=== PATIENT | female | born 1995 | race Caucasian/White ===

== ENCOUNTER 2020-01-31 09:53 | Outpatient (CLI) | payer OTHER ==
[2020-01-31 11:52] LABS: BASOPHILS # (AUTO) 0.1 10^3/uL (0.0-0.1); BASOPHILS % (AUTO) 0.6 %; EOSINOPHILS # (AUTO) 0.1 10^3/uL (0.0-0.7); EOSINOPHILS % (AUTO) 1.1 %; HGB - HEMOGLOBIN 13.7 g/dL (12.0-16.0); LYMPHOCYTES # (AUTO) 2.8 10^3/uL (1.5-3.5); LYMPHOCYTES % (AUTO) 35.1 %; MEAN CORPUSCULAR HEMOGLOBIN 29.5 pg (27.0-31.0); MEAN CORPUSCULAR HGB CONC 32.2 g/dL (32.0-36.0); MEAN CORPUSCULAR VOLUME 91.6 fL (81.0-99.0); MEAN PLATELET VOLUME 10.4 fL (7.9-10.8); MONOCYTES # (AUTO) 0.5 10^3/uL (0.0-1.0); MONOCYTES % (AUTO) 6.2 %; NEUTROPHILS # (AUTO) 4.5 10^3/uL (1.5-6.6); NEUTROPHILS % (AUTO) 56.6 %; PLT - PLATELET COUNT 275 10^3/uL (130-450); RED BLOOD COUNT 4.64 10^6/uL (4.20-5.40); RED CELL DISTRIBUTION WIDTH 12.1 % (12.0-15.0); WHITE BLOOD COUNT 7.9 x10^3/uL (4.8-10.8)
[2020-01-31 12:27] LABS: ALBUMIN 4.2 g/dL (3.2-5.5); ALBUMIN/GLOBULIN RATIO 1.2 (1.0-2.2); ALKALINE PHOSPHATASE 75 IU/L (42-121); ALT ALANINE AMINOTRANSFERASE 26 IU/L (10-60); AST ASPARTATE AMINOTRANSFERASE 18 IU/L (10-42); BILIRUBIN,TOTAL 0.6 mg/dL (0.2-1.0); BUN - BLOOD UREA NITROGEN 13 mg/dL (6-20); CALCIUM 9.2 mg/dL (8.5-10.3); CARBON DIOXIDE - CO2 27 mmol/L (21-32); CHLORIDE 103 mmol/L (101-111); CHOL/HDL RATIO 4.1 (<4.4); CHOLESTEROL 183 mg/dL; CREATININE 0.7 mg/dL (0.4-1.0); GLUCOSE 92 mg/dL (70-100); HDL CHOLESTEROL 45 mg/dL; LDL CHOLESTEROL,CALCULATED 113 mg/dL; LDL/HDL RATIO 2.5 (<4.4); SODIUM 137 mmol/L (135-145); TOTAL PROTEIN 7.6 g/dL (6.7-8.2); VLDL CHOLESTEROL 25 mg/dL
== END 2020-01-31 23:59 | disposition home or self-care (01) ==
LOC: LAB.WCP 09:53
PROVIDERS: ATTEND Physician Assistant Medical
DX: Z00.00 Encounter for general adult medical examination without abnormal findings (principal)
CPT/HCPCS: 36415; 80053; 80061; 83721; 84443; 85025

== ENCOUNTER 2021-04-08 17:03 | Emergency (ER) | payer MEDICAID, OTHER ==
[2021-04-08 20:21] VITALS: BP 138/65
--- NOTE | 2021-04-08 21:14 | XRAY Report ---
PROCEDURE: Chest 2 View X-Ray INDICATIONS: cough TECHNIQUE: 2 view(s) of the chest. COMPARISON: None. FINDINGS: Surgical changes and devices: None. Lungs and pleura: No pleural effusions or pneumothorax. Lungs are clear. Mediastinum: Mediastinal contours are normal. Heart size is normal. Bones and chest wall: No suspicious bony abnormalities. Soft tissues appear unremarkable. IMPRESSION: No evidence acute pulmonary process. Reviewed by: Erwin Hudson MD on 04/08/2021 9:13 PM PDT Approved by: Erwin Hudson MD on 04/08/2021 9:13 PM PDT Station ID: [id number]
--- NOTE | 2021-04-08 21:34 | ED Physician Documentation ---
History of Present Illness - Stated complaint Stated Complaint: BACK PX - Chief complaint Chief Complaint: Back Pain - Additonal information Additional information: 25-year-old female presents emergency department for evaluation of midthoracic back pain that began about 1 month ago. She did deliver her infant 2 months ago. No complications. 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 She denies a pleuritic component to this pain but does state that sometimes it radiates to her anterior chest. No falls or trauma. No history of DVT or cancer. No unilateral leg swelling. The pain occurs when she lays flat for too long or after she has been breast- feeding. It is reproducible on exam. Review of Systems Constitutional: denies: Fever, Chills Eyes: reports: Reviewed and negative Ears: reports: Reviewed and negative Nose: reports: Reviewed and negative Throat: reports: Reviewed and negative Cardiac: reports: Reviewed and negative Respiratory: reports: Reviewed and negative Musculoskeletal: reports: Back pain PD PAST MEDICAL HISTORY - Present Medications Home Medications: Ambulatory Orders Medication Instructions Recorded Confirmed Cholecalciferol [Vitamin D3] 5,000 unit ORAL DAILY 04/08/21 04/08/21 Cyclobenzaprine [Flexeril] 10 mg PO DAILY 6 Days #12 tablet 04/08/21 Pnv No.95/Ferrous Fum/Folic AC 1 each PO DAILY 04/08/21 04/08/21 [ Tablet] - Allergies Allergies/Adverse Reactions: Allergies Allergy/AdvReac Type Severity Reaction Status Date / Time amoxicillin AdvReac Rash Verified 04/08/21 17:26 PD ED PE NORMAL - General General: Alert and oriented X 3, No acute distress - Neck Neck: Supple, no meningeal sign - Cardiac Cardiac: RRR, No murmur - Respiratory Respiratory: Clear bilaterally - Abdomen Abdomen: Normal bowel sounds, Soft, Non tender, Non distended - Back Back: No CVA TTP, Other (Reproducible mid thoracic back pain with palpation. No crepitus step-off or erythema. Full range of motion of the thoracic spine.) - Derm Derm: Warm and dry - Extremities Extremities: No deformity Results - Vitals Vitals: Vital Signs - 24 hr 04/08/21 04/08/21 17:27 20:20 Temperature 36.2 C L 36.3 C L Heart Rate 96 89 Respiratory 16 16 Rate Blood Pressure 118/72 138/65 H O2 Saturation 100 97 Oxygen O2 Source Room air - Rads (name of study) CXR Radiology: Final report received (No acute process) PD MEDICAL DECISION MAKING - ED course Complexity details: reviewed results, d/w patient ED course: 25-year-old female presents emergency department for evaluation of midthoracic back pain that occurs mostly after breast-feeding her infant or when she lays flat for too long. The pain is reproducible on palpation. 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 She does have Nexplanon implant in place. We discussed the possibility that this Could be a subtle indication of a pulmonary embolus. I offered D- dimer testing with the understanding that if elevated she would require CT pulmonary angio. However she declined that at this time. She felt that she would get improvement by continuing ibuprofen and Tylenol and request a muscle relaxer. Flexeril will be prescribed. Emergent return precautions were discussed for worsening symptoms. 2 view chest x-ray did not show any fractures findings of pneumonia. Departure - Departure Disposition: 01 Home, Self Care Clinical Impression: Thoracic back pain Qualifiers: Chronicity: acute Back pain laterality: midline Qualified Code(s): M54.6 - Pain in thoracic spine Condition: Stable Record reviewed to determine appropriate education?: Yes Prescriptions: Cyclobenzaprine [Flexeril] 10 mg PO DAILY 6 Days #12 tablet Comments: Annette you were seen in the emergency department today for mid thoracic back pain that is been present for about a month. We discussed that there was a very small possibility that this could be pulmonary embolus given your history of recent delivery as well as Ehler Danlos syndrome. However you elected to attempt a trial of a muscle relaxer to see if it provided relief. I have prescribed a limited amount of Flexeril. This can be taken once or twice daily as needed. It does cross over into the breastmilk so use it cautiously but it is generally considered to safe. Please follow-up with your primary care provider. If your symptoms are not improving, you develop shortness of breath, have leg swelling or severe chest pain then please return immediately to the ER for a second evaluation.
== END 2021-04-08 21:53 | disposition home or self-care (01) ==
LOC: ED 17:03
DX: M54.6 Pain in thoracic spine (principal); Q79.60 Ehlers-Danlos syndrome, unspecified
CPT/HCPCS: 99283; 99284

== ENCOUNTER 2021-04-13 10:34 | Emergency (ER) | payer MEDICAID ==
[2021-04-13 12:33] LABS: BASOPHILS % (AUTO) 0.3 %; EOSINOPHILS % (AUTO) 0.3 %; HCT - HEMATOCRIT 38.7 % (37.0-47.0); LYMPHOCYTES # (AUTO) 1.6 10^3/uL (1.5-3.5); LYMPHOCYTES % (AUTO) 25.8 %; MEAN CORPUSCULAR HEMOGLOBIN 26.6 pg (27.0-31.0); MEAN CORPUSCULAR VOLUME 85.8 fL (81.0-99.0); MEAN PLATELET VOLUME 9.8 fL (7.9-10.8); MONOCYTES # (AUTO) 0.4 10^3/uL (0.0-1.0); MONOCYTES % (AUTO) 6.3 %; NEUTROPHILS # (AUTO) 4.2 10^3/uL (1.5-6.6); PLT - PLATELET COUNT 280 10^3/uL (130-450); RED BLOOD COUNT 4.51 10^6/uL (4.20-5.40); RED CELL DISTRIBUTION WIDTH 14.6 % (12.0-15.0); WHITE BLOOD COUNT 6.2 x10^3/uL (4.8-10.8)
[2021-04-13 12:34] LABS: GLUCOSE, URINE (UA) NEGATIVE (NEGATIVE); KETONES,URINE (UA) NEGATIVE (NEGATIVE); LEUKOCYTE ESTERASE, URINE TRACE (NEGATIVE); NITRITE,URINE NEGATIVE (NEGATIVE); OCCULT BLOOD,URINE NEGATIVE (NEGATIVE); PH,URINE 8.5 PH (5.0-7.5); PROTEIN,URINE NEGATIVE (NEGATIVE); UROBILINOGEN,URINE 1 (NORMAL) E.U./dL (NORMAL)
[2021-04-13 12:37] LABS: CLARITY,URINE CLEAR (CLEAR)
[2021-04-13 12:44] LABS: BILIRUBIN,URINE NEGATIVE (NEGATIVE); ICTOTEST,URINE NEGATIVE
[2021-04-13 12:56] LABS: BACTERIA,URINE Few /HPF (None Seen); RBC,URINE 0-5 /HPF (0-5); SQUAMOUS EPITHELIAL CELL,UR MOD Squamous (<= Few)
[2021-04-13 12:59] LABS: ALBUMIN 4.4 g/dL (3.2-5.5); ALBUMIN/GLOBULIN RATIO 1.3 (1.0-2.2); BILIRUBIN,TOTAL 1.8 mg/dL (0.2-1.0); CALCIUM 9.3 mg/dL (8.5-10.3); CREATININE 0.6 mg/dL (0.4-1.0); POTASSIUM 4.2 mmol/L (3.5-5.0); TOTAL PROTEIN 7.8 g/dL (6.7-8.2)
[2021-04-13] MEDS ORDERED: IOPAMIDOL-300 100 ML VIAL ONE (13:08)
[2021-04-13] MEDS ORDERED: MORPHINE 2 MG/ML CARPUJECT IVP STA (13:33)
--- NOTE | 2021-04-13 13:34 | ED Physician Documentation ---
PD HPI BACK PAIN - Stated complaint Stated Complaint: BACK PAIN - Chief complaint Chief Complaint: Back Pain - History obtained from History obtained from: Patient - History of Present Illness Timing - duration: Months (3) Timing - details: Gradual onset Pain level max: 6 Pain level now: 5 Location: Mid, Left Quality: Pain, Similar to prior episodes Associated symptoms: No: Fever, Weakness, Numbness, Incontinent of urine, Unable to urinate, Hematuria Improves with: Rest Worsened by: Movement Contributing factors: Lifting - Additional information Additional information: Patient is a 25-year-old female who presents to the emergency department with left midthoracic back pain. Ongoing for the past 2 to 3 months since giving . She states she has a history of Marie-Danlos syndrome. She states that the pain seems to be worse with taking a deep breath or moving. Also worse with lifting her child. Had been trialed on muscle relaxants and pain medication without relief. No chest pain. No shortness of breath. Review of Systems Constitutional: denies: Fever, Chills Respiratory: denies: Cough GI: denies: Vomiting, Constipation, Diarrhea : denies: Dysuria, Frequency, Hesitancy, Incontinent Musculoskeletal: denies: Neck pain Neurologic: denies: Focal weakness, Numbness PD PAST MEDICAL HISTORY - Past Medical History Past Medical History: Yes Other Past Medical History: marie danlos - Past Surgical History Past Surgical History: No - Present Medications Home Medications: Ambulatory Orders Medication Instructions Recorded Confirmed Cholecalciferol [Vitamin D3] 5,000 unit ORAL DAILY 04/08/21 04/13/21 Cyclobenzaprine [Flexeril] 10 mg PO DAILY 6 Days #12 tablet 04/08/21 04/13/21 Pnv No.95/Ferrous Fum/Folic AC 1 each PO DAILY 04/08/21 04/13/21 [ Tablet] HYDROcod/ACETAM 5/325 [[place] 5/325] 1 - 2 ea PO Q6H PRN #14 tablet 04/13/21 Meloxicam [Mobic] 15 mg PO DAILY PRN #20 tablet 04/13/21 methocarbamoL [Robaxin] 500 mg PO Q6H PRN #20 tablet 04/13/21 - Allergies Allergies/Adverse Reactions: Allergies Allergy/AdvReac Type Severity Reaction Status Date / Time amoxicillin AdvReac Rash Verified 04/13/21 10:57 - Living Situation Living Arrangement: reports: At home - Social History Does the pt smoke?: No Smoking Status: Never smoker Does the pt drink ETOH?: No Does the pt have substance abuse?: No - Immunizations Immunizations are current?: No - POLST Patient has POLST: No PD ED PE NORMAL - Vitals Vital signs reviewed: Yes - General General: Alert and oriented X 3, No acute distress, Well developed/nourished - HEENT HEENT: PERRL, Moist mucous membranes - Neck Neck: Supple, no meningeal sign - Cardiac Cardiac: RRR, No murmur, Strong equal pulses - Respiratory Respiratory: No respiratory distress, Clear bilaterally - Abdomen Abdomen: Soft, Non tender, Non distended - Back Back: No CVA TTP, No spinal TTP, Other (Mild tenderness to palpation mid thoracic, left side. No step-off or deformity. No skin changes.) - Derm Derm: Warm and dry - Extremities Extremities: No edema, No calf tenderness / cord - Neuro Neuro: Alert and oriented X 3, No motor deficit, No sensory deficit, Normal speech, Other (Normal bilateral lower extremity patellar and ankle jerk reflexes. Normal great toe extension bilaterally. no saddle anesthesia) Eye Opening: Spontaneous Motor: Obeys Commands Verbal: Oriented GCS Score: 15 - Psych Psych: Normal mood, Normal affect Results - Vitals Vitals: Vital Signs - 24 hr 04/13/21 04/13/21 10:57 15:39 Temperature 36.2 C L 36.5 C Heart Rate 67 66 Respiratory 18 16 Rate Blood Pressure 109/57 L 112/60 O2 Saturation 96 98 Oxygen O2 Source Room air - Labs Labs: Laboratory Tests 04/13/21 04/13/21 04/13/21 11:14 12:27 12:27 WBC 6.2 RBC 4.51 Hgb 12.0 Hct 38.7 MCV 85.8 MCH 26.6 L MCHC 31.0 L RDW 14.6 Plt Count 280 MPV 9.8 Neut # (Auto) 4.2 Lymph # (Auto) 1.6 [place] # (Auto) 0.4 Eos # (Auto) 0.0 Baso # (Auto) 0.0 Absolute Nucleated RBC 0.00 Nucleated RBC % 0.0 Sodium 141 Potassium 4.2 Chloride 103 Carbon Dioxide 27 Anion Gap 11.0 BUN 14 Creatinine 0.6 Estimated GFR (MDRD) 123 Glucose 96 Calcium 9.3 Total Bilirubin 1.8 H AST 726 H ALT 669 H Alkaline Phosphatase 225 H Total Protein 7.8 Albumin 4.4 Globulin 3.4 Albumin/Globulin Ratio 1.3 Lipase 52 H Urine Color DARK YELLOW Urine Clarity CLEAR Urine pH 8.5 H Ur Specific [place] 1.015 Urine Protein NEGATIVE Urine Glucose (UA) NEGATIVE Urine Ketones NEGATIVE Urine Occult Blood NEGATIVE Urine Nitrite NEGATIVE Urine Bilirubin NEGATIVE Urine Urobilinogen 1 (NORMAL) Ur Leukocyte Esterase TRACE H Urine RBC 0-5 Urine WBC 11-25 H Ur Squamous Epith Cells MOD Squamous H Urine Bacteria Few Ur Microscopic Review INDICATED Urine Culture Comments NOT INDICATED - Rads (name of study) CT angio chest Radiology: Final report received, EMP read contemporaneously, See rad report (no acute abnormality) PD MEDICAL DECISION MAKING - ED course Complexity details: reviewed results, re-evaluated patient, considered differential (No cauda equina, no spinal epidural abscess, no fracture, no aortic dissection or evidence of aneursym rupture), d/w patient ED course: No acute findings on CT scan. No evidence of aortic dissection, pulmonary embolus. Likely that this is muscular pain from picking up her new repeatedly. We will prescribe pain medication, muscle relaxants and have her follow-up closely with her doctor for further care. I am prescribing a short course of short-acting opioid pain medication for this patient. I have reviewed the patients ORE GRADER and no concerning findings were noted. I have discussed that the opioids are for short term therapy only, and will not be refilled from the ED. patient counseled regarding signs and symptoms for which I believe and urgent re-evaluation would be necessary. Patient with good understanding of and agreement to plan and is comfortable going home at this time This document was made in part using voice recognition software. While efforts are made to proofread this document, sound alike and grammatical errors may occur. Departure - Departure Disposition: 01 Home, Self Care Clinical Impression: Thoracic back pain Qualifiers: Chronicity: acute Back pain laterality: left Qualified Code(s): M54.6 - Pain in thoracic spine Condition: Good Instructions: ED Neck Back Pain General Follow-Up: your,doctor in 1 week [Other] Prescriptions: Meloxicam [Mobic] 15 mg PO DAILY PRN #20 tablet PRN Reason: pain HYDROcod/ACETAM 5/325 [[place] 5/325] 1 - 2 ea PO Q6H PRN #14 tablet PRN Reason: Pain methocarbamoL [Robaxin] 500 mg PO Q6H PRN #20 tablet PRN Reason: muscle spasm Comments: Please follow-up with your doctor for further care. Your prescriptions were sent to [facility] in [place]. I am prescribing a short course of narcotic pain medication for you. These are potentially dangerous and addictive medications that should be used carefully. These medications may constipate you. Take an qqje-yet-ohltrvz stool softener (docusate) twice daily with plenty of water while taking these medications. If you go 24 hours without a bowel movement, take ryqr-uyq-ddkofrw miralax, per package instructions. Do not drink or drive while taking these medications. If you received narcotic or sedating medications while in the emergency department, do not drive for 24 hours. Store this medication in a safe, secure place and out of reach of children. It is a violation of federal law to give or sell this medication to another person or to use in a manner other than prescribed. The ED will not refill narcotic prescriptions, including prescriptions lost or stolen. To dispose of unwanted medications: 1. [facility] at [address] in [place] has a medication drop box. They accept prescription medications (in pill form) Tuesday through Tuesday 9:00 a.m. to 5:00 p.m. 2. The [facility] [employer] [facility] accepts prescription medications (in pill form only) for disposal year round. Call for more information. 3. Contact the [facility] for the next [facility] sponsored prescription drug collection event. , [phone], or [phone]; Discharge Date/Time: 04/13/21 15:43
[2021-04-13] MEDS ORDERED: IOPAMIDOL-300 100 ML VIAL IVP ONE (14:01)
--- NOTE | 2021-04-13 15:02 | CT Report ---
PROCEDURE: ANGIO CHEST W/WO INDICATIONS: mid thoracic back pain CONTRAST: IV CONTRAST: Isovue 300 ml: 80 PO CONTRAST: *NO PO CONTRAST TECHNIQUE: After the administration of intravenous contrast, images were acquired from the pulmonary apices to t he posterior costophrenic angles. 3-dimensional maximum intensity projection (MIP) coronal and sagit cristino reformats were then acquired through the thorax. For radiation dose reduction, the following was used: automated exposure control, adjustment of mA and/or kV according to patient size. COMPARISON: None. FINDINGS: Image quality: Excellent. Pulmonary arteries: Pulmonary arteries are normal in size, and demonstrate no intraluminal filling d efects to suggest central pulmonary embolism. Lungs and pleura: Mild bibasilar atelectasis. Otherwise, lungs are clear. No focal consolidation. No pleural effusions or pneumothorax. Central and peripheral airways are patent. Mediastinum: Heart size is normal, without pericardial effusion. No mediastinal or hilar adenopathy . Thoracic aorta is normal in caliber and enhancement. Esophagus is normal in caliber, without hiat al hernia. Bones and chest wall: No suspicious bony lesions. Ribs and thoracic spine appear intact throughout. No axillary or supraclavicular adenopathy. The thyroid is normal in size and there are no incident al findings. Acute compression fractures of the thoracic spine. Abdomen: Visualized upper abdominal solid organs appear normal in the early arterial phase of enhanc ement. IMPRESSION: No acute pulmonary emboli. No acute cardiopulmonary abnormalities. No acute compression fractures of the imaged spine. CLINICAL RECOMMENDATION STATEMENTS: In patients <35 years with an ITN detected on CT, MRI, or extrathyroidal ultrasound, the Committee re commends further evaluation with dedicated thyroid ultrasound if the nodule is ?1 cm and has no suspi cious imaging features, and if the patient has normal life expectancy. In patients ?35 years with an ITN detected on CT, MRI, or extrathyroidal ultrasound, the Committee re commends further evaluation with dedicated thyroid ultrasound if the nodule is ?1.5 cm and has no annita picious imaging features, and if the patient has normal life expectancy. (ACR, 2014) Reviewed by: Fabian Garrett MD on 04/13/2021 3:01 PM PDT Approved by: Fabian Garrett MD on 04/13/2021 3:01 PM PDT Station ID: [id number]
[2021-04-13 15:40] VITALS: BP 112/60
== END 2021-04-13 15:43 | disposition home or self-care (01) ==
LOC: ED 10:34
DX: M54.6 Pain in thoracic spine (principal); Q79.60 Ehlers-Danlos syndrome, unspecified
CPT/HCPCS: 36415; 71275; 80053; 81001; 83690; 85025; 96374; 99284; Q9967; 81003; 87086

== ENCOUNTER 2023-09-30 15:03 | Outpatient (CLI) | payer MEDICAID ==
--- NOTE | 2023-09-30 15:59 | Sleep Patient Instructions ---
Sleep Center Visit Summary - Patient Visit Information Reason for Visit: Initial consult for evaluation of sleep disordered breathing and other sleep issues. - Patient Instructions Instructions Attached: Sleep Study, Sleep Study Home Monitor Additional Instructions: You will be completing a sleep study, either an in-lab polysomnography (PSG) or home sleep study (HST). You will follow-up in the sleep care office after the sleep study is completed to hear the results and talk about therapy, if needed. You will be called by our office staff to schedule this appointment, but you may contact us with any questions. - Clinic Information Contact: [facility] [address] [place] [id number] [email or web address] T: [phone]
[2023-09-30 16:04] VITALS: BP 124/77; O2SAT 98
--- NOTE | 2023-09-30 16:04 | SLEEP CARE CONSULTATION ---
Information from patient questionnaire entered by Nimco Vega. I have reviewed and concur with the information entered by Nimco Vega. This document represents the service I personally performed and the decisions made by me, Yelena Rockwell ARNP. History of Present Illness Service Date and Time: 09/30/2023 1503 Reason for Visit: New patient Chief Complaint: reports: Insomnia (1-2YRS), Snoring, Excessive daytime sleepiness, Observed pauses in breathing ( LONG I CAN REMEMBER ), Fatigue, Frequent awakenings at night Usual bedtime: 8PM Time it takes to fall asleep: 1.5HRS Snores at night: Yes Observed to quit breathing while asleep: Yes Number of times waking at night: 3-4 Reasons for waking at night: reports: Pain, Bathroom, Other (UNKNOWN). denies: Choking, Snoring, Gasping for air Toss, Turn, or Twitch while sleeping: Yes Recalls having dreams: Yes Usually gets out of bed at: 415AM; hour more on weekends Feels refreshed in the morning: No Morning headache: Yes (4 times a week; last 30 mins, resolves with shower) Sleepy or fatigued during the day: Yes (more in afternoon) Ever fallen asleep while driving: No Takes day naps: Yes (daily during her break from work for about an hour; split schedule) Dreams during day naps: No Prior sleep studies: No Additional HPI information: I had the pleasure of seeing IRA PHAM today regarding the possibility of her having a sleep disorder. Her current complaints are excessive daytime sleepiness, fatigue, frequent night awakenings, insomnia, observed pauses in breathing and snoring. She was seeing her doctor about anxiety and depression issues. He mother told her she snores and stops breathing like her dad who has sleep apnea when sleeping on the couch at home. Her sister tells her she snores like a freClusterize train. Her sister has also heard her stop breathing and then gasp and resume sleeping/snoring. She does not normally wake up feeling refreshed and gets tired during the days, especially in afternoon. She will take a daily nap in the afternoon when working. She works a split shift and comes home in between times and sleeps for about an hour. She feels that she wakes up frequently. She lays down to sleep about 8 PM after putting her 2.5 year old son to bed. But, she lays there until about 9:30 PM before falling asleep. She gets up on average about 0415 for work, by 7 AM on weekends. - Parasomnia Symptoms Ever been unable to move upon waking from sleep: No Walks in sleep: No Talks in sleep: Yes Ever acted out dreams in sleep: No Ever felt weak in the knees when startled or emotional: Yes (has not fallen to the ground) Bothered by creepy, crawly, restless sensations in legs: No Problems with memory or concentration: Yes (more memory; does have ADHD) Subjective Initial [place] Sleepiness Scale score: 13 (09/30/23) Past Medical History Past Medical History: reports: Claustrophobia, Anxiety, Asthma, Depression, Attention deficit, Other (history of Maire Danlos) Social History The patient's occupation is a [employer]. Patient is Single and lives in . Have you smoked in the past 12 months: No Alcohol use: No Caffeine use: Yes Caffeine amount and frequency: .5 BOTTLE 2-3 TIMES Family History Family history of sleep disordered breathing: Yes Family Hx Sleep Apnea: Father: Snoring (SON), Sleep apnea - Treated, Sibling: Snoring, Other: Snoring Allergies and Home Medications Known drug allergies: Yes (AMOXICILLIN) Drug allergies reviewed: Yes Home medication list reviewed: Yes Allergy and home medication list: Allergies amoxicillin Adverse Reaction (Verified 09/29/23 12:18) Rash Home Medications Medication Instructions Recorded Confirmed Last Taken Type Albuterol Sulf [Ventolin Hfa See Rx Instructions .ROUTE .COMPLEX 09/30/23 09/30/23 Unknown History Inhaler] Escitalopram Oxalate [Lexapro] See Rx Instructions .ROUTE .COMPLEX 09/30/23 09/30/23 Unknown History Review of Systems Weight gain over past 5 years: 90 Cardiovascular: denies: high blood pressure Respiratory: reports: shortness of breath Gastrointestinal: reports: heartburn, vomitting, diarrhea Neurological: reports: headaches Psychiatric: reports: Attention Deficit Hyperactivity, anxiety, depression, claustrophobia Ear/Nose/Throat: reports: tonsillectomy, wisdom teeth removed Endocrine: reports: sluggishness Physical Exam Vital signs obtained and entered by: NIMCO Still MA Blood Pressure: 124/77 (LEFT ARM) Cuff size: regular Heart Rate: 89 O2 Saturation: 98 Height: 5 ft 4 in Weight: 263 lb 3.2 oz Body Mass Index: 45.1 BMI Classification: Morbidly Obese Neck circumference: 18.5 Mouth and throat: narrow oropharynx Soft palate: long Hard palate: normal Uvula: normal Uvula visualization: 25% Mallampati Class III Tongue: enlarged in size with teeth downing on lateral edges Tonsils: absent bilaterally Neck: normal w/o lymphadenopathy or thyromegaly Heart: regular rate and rhythm Lungs: clear bilaterally Impression and Plan 1. Suspected Obstructive Sleep Apnea-Hypopnea Syndrome, as suggested by a history of loud and irregular snoring, observed cessation of breath while asleep, gasping or choking in sleep, morning headache, frequent awakening during the night, unrefreshed sleep, cognitive impairment, and excessive daytime sleepiness. Narrow oropharynx and obesity are common predisposing factors for obstructive sleep apnea-hypopnea syndrome. I recommend proceeding to polysomnography to confirm the diagnosis and to assess severity. If the patient has significant sleep disordered breathing, a manual CPAP titration study will also be performed to find the optimal treatment pressure. I informed the patient of what the sleep studies involve and after some discussion, obtained agreement to proceed. The pathophysiology of obstructive sleep apnea-hypopnea syndrome was discussed with the patient and health risks of cardiovascular and cerebrovascular disease if not treated. Risks of drowsy driving discussed in detail and patient advised to avoid long distance driving and to cotton puller at the first sign of drowsiness. Patient agreed to plan. * Schedule polysomnography +- manual CPAP titration study and return in 1-2 weeks after the study to discuss result and initiate therapy. * Avoid long distance driving or driving when feeling sleepy. * Avoid alcohol, sedative and muscle relaxant around bedtime. * Attempt to lose weight. * Review instructions provided by trained office staff on how to prepare for the sleep study. * Return for follow-up after sleep study completed. Counseling Topics: Weight loss health impact Follow up with Sleep Care in: other (after sleep study) Plan: PSG/HST Visit Type: In Office Time Spent with Patient (minutes): 30 Provider Statement: I spent 100% of the Face to Face Visit with the patient with greater than 50% spent counseling the patient and coordination of care.
== END 2023-09-30 15:04 | disposition home or self-care (01) ==
LOC: SC 15:03
PROVIDERS: ATTEND Nurse Practitioner Family
DX: G47.10 Hypersomnia, unspecified (principal); R53.83 Other fatigue; G47.8 Other sleep disorders; R06.83 Snoring; R06.81 Apnea, not elsewhere classified; R51.9 Headache, unspecified; R41.89 Other symptoms and signs involving cognitive functions and awareness; F32.A Depression, unspecified; E66.01 Morbid (severe) obesity due to excess calories; Z68.42 Body mass index [BMI] 45.0-49.9, adult
CPT/HCPCS: 99203; 99212

== ENCOUNTER 2023-11-17 08:22 | Outpatient (CLI) | payer MEDICAID | END 2023-11-17 08:23 | disposition home or self-care (01) | LOC: SC 08:22 | PROVIDERS: ATTEND Nurse Practitioner Family | DX: G47.33 Obstructive sleep apnea (adult) (pediatric) (principal); R09.02 Hypoxemia | CPT/HCPCS: 95806 ==

== ENCOUNTER 2023-12-21 15:52 | Outpatient (CLI) | payer MEDICAID ==
--- NOTE | 2023-12-21 16:17 | Sleep Patient Instructions ---
Sleep Center Visit Summary - Patient Visit Information Reason for Visit: Sleep study follow-up - Patient Instructions Instructions Attached: CPAP Additional Instructions: You are being started on CPAP therapy with pressure setting at 4-15 cmH2O. You will need to call the sleep care office to set up your follow up once you have your CPAP machine to check compliance and response to therapy at that time. You may call the office with any concerns about pressure feeling too low or too much for adjustment, if needed. You should contact DME supplier for any questions or concerns about mask or equipment. Please call office to schedule a follow up appointment in the sleep care office one month after obtaining new device. - Clinic Information Contact: [facility] [address] [place] [address] [email or web address] T: [phone]
--- NOTE | 2023-12-21 16:18 | SLEEP CARE CONSULTATION ---
Information from patient questionnaire entered by Nimco Vega. I have reviewed and concur with the information entered by Nimco Vega. This document represents the service I personally performed and the decisions made by , Yelena Rockwell ARNP. History of Present Illness Service Date and Time: 12/21/2023 1600 Initial [place] Sleepiness Scale score: 13 (09/30/23) Current [place] Sleepiness Scale score: 12 (12/21/23) Additional HPI information: [facility] returns for follow up and results of the recently performed home sleep study. The sleep study showed moderate obstructive sleep apnea with an average AHI of 21.9 and elfego oxygen saturation of 68%. I explained the pathophysiology behind obstructive sleep apnea. We then spent quite a bit of time discussing different treatment options. For mild obstructive sleep apnea, surgery and oral appliance are alternatives to nasal CPAP therapy but in moderate or severe cases, nasal CPAP is the most effective and reliable treatment. I reviewed the impact of weight changes on sleep apnea and strongly recommended losing weight. After some discussion, the patient opted to go with the nasal CPAP therapy. Nasal autoCPAP set at 4-15 cmH20 will be ordered with rationale explained. A manual titration study will be ordered if unable to find optimal pressure with office adjustments. I explained how CPAP machine works and what to expect when using the machine. Using CPAP every night in order to get used to it was emphasized. Patient advised to put CPAP mask on before getting into bed so as not to fall asleep without CPAP. To assist acclimation to CPAP use, it could also be used for a short time during day while reading or watching TV. The patient was instructed to call the CPAP supplier to discuss any mechanical problem that may occur. If the mask given is uncomfortable or is difficult to keep on through the night even with adjustment, contact the CPAP supplier as many will replace with another mask style if notified before 30 days. If snoring or perceives is not getting enough air or too much air from the machine, notify this office. Patient does not drink alcohol. Patient was cautioned about risks of drowsy driving until sleepiness symptoms resolve. Patient denies drowsy driving. Sleep Study - Results Type of Sleep Study: Home sleep study (COMPLETED 11/17/23) Prior sleep studies: No Polysomnography/Home Sleep Study results: Physician Impression: The quality of the study is good. The length of the study is adequate (> 240 minutes). Please also see the tabulated and graphic data. 1. Obstructive Sleep Apnea-Hypopnea (ICD-10 G47.33), moderate, with an AHI of 21.9/hr and elfego SaO2 of 68%. During the study, the patient had 108 apneas (108 obstructive, 0 central, 0 mixed) and 107 hypopneas. The longest episode lasted 58.5 seconds. The respiratory events occurred more frequently during supine sleep (supine AHI was 23.1 and non-supine, 10.97). 2. Hypoxemia (ICD-10 R09.02), moderate, with the lowest oxygen saturation of 68 % and 40.6 minutes with SaO2 under 90%. Baseline oxygen saturation was normal (Average oxygen sa turation was 93%). Allergies and Home Medications Known drug allergies: Yes (as listed) Drug allergies reviewed: Yes Home medication list reviewed: Yes (escitalopram; Buspirone) Allergy and home medication list: Allergies amoxicillin Adverse Reaction (Verified 12/19/23 10:30) Rash Review of Systems Review of systems same as previous: Yes (NO CHANGE) Physical Exam Vital signs obtained and entered by: NIMCO Still MA Blood Pressure: 120/65 (RIGHT ARM) Cuff size: long Heart Rate: 80 O2 Saturation: 97 Height: 5 ft 4 in Weight: 261 lb 3.2 oz Body Mass Index: 44.8 BMI Classification: Morbidly Obese Impression and Plan 1. Obstructive Sleep Apnea-Hypopnea Syndrome, moderate, with lowest oxygen saturation of 68%. Obviously this is the cause of the patients symptoms of unrefreshed sleep, and excessive daytime sleepiness. Positive pressure therapy could benefit anxiety, depression and attention deficit. As mentioned above, the patient will be started on nasal autoCPAP therapy with pressure set at 4-15 cmH2O. A manual titration study will be completed if unable to find optimal treatment pressure with office adjustments. Compliance guidelines also reviewed. A copy of compliance guidelines will be given for reference at check out. Because the apnea is more severe supine, I instructed to avoid sleeping supine using pillow positioning until able to start CPAP use. She requests a doctor's note for her employer. This was completed and given as requested. I will see her in followup a month after she gets her new CPAP to check compliance and adjust pressures as needed. 2. Hypoxemia, moderate, with a elfego oxygen saturation of 68% and 40.6 minutes spent under 90%. The baseline oxygen saturation was normal with an average oxygen saturation of 93%. 3. Obesity, unspecified. Currently patients BMI is 44.8. Obesity increases the risk of apnea, CPAP pressure requirements and overall health risks especially cardiovascular and diabetes. Thus patient is advised to lose weight. * Nasal auto CPAP therapy, pressure at 4-15 cm H2O. * Attempt to lose weight. * Avoid alcohol consumption near bedtime. * Avoid supine sleep until using CPAP. * The patient is again cautioned about driving until sleepiness completely resolves. * Return one month after CPAP obtained. I will assess response to therapy and compliance at that time. Counseling Topics: Sleeping position, Weight loss health impact Prescriptions: Auto CPAP Plan: CPAP compliance followup Visit Type: In Office Time Spent with Patient (minutes): 20 Provider Statement: I spent 100% of the Face to Face Visit with the patient with greater than 50% spent counseling the patient and coordination of care.
[2023-12-21 16:24] VITALS: BP 120/65; O2SAT 97
== END 2023-12-21 15:53 | disposition home or self-care (01) ==
LOC: SC 15:52
PROVIDERS: ATTEND Nurse Practitioner Family
DX: G47.33 Obstructive sleep apnea (adult) (pediatric) (principal); R09.02 Hypoxemia; E66.01 Morbid (severe) obesity due to excess calories; Z68.41 Body mass index [BMI] 40.0-44.9, adult
CPT/HCPCS: 99212; 99213